=== PATIENT | male | born 1960 | race Caucasian/White ===

== ENCOUNTER 2024-01-17 10:15 | Observation (INO) ==
[2024-01-17 13:34] LABS: Hematocrit (blood only) 45.8 % (42.0-52.0); Hemoglobin 15.5 g/dl (14.0-18.0); Mean Corpuscular Hemoglobin 30.5 pg (25.0-34.0); Mean Corpuscular Hgb Conc 33.8 g/dL (32.0-36.0); Mean Corpuscular Volume 90.2 fL (80.0-100.0); Platelet Count 320 K/uL (130-400); RDW Coefficient of Variation 13.6 % (11.5-14.5); RDW Standard Deviation 45.4 fL (36.4-46.3); Red Blood Count 5.08 M/uL (4.70-6.10); White Blood Count 22.49 K/ul (4.8-10.8)
[2024-01-17 13:39] LABS: Alanine Aminotransferase 25 U/L (7-52); Albumin Globulin Ratio 1.8 (0.9-2); Albumin Level 4.9 gm/dl (3.4-5.0); Alkaline Phosphatase 81 U/L (34-104); Anion Gap 6 (3-11); Aspartate Aminotransferase 23 U/L (13-39); BUN Creatinine Ratio 19.2 (10-20); Bilirubin,Total 0.6 mg/dl (0.2-1.0); Blood Urea Nitrogen 15 mg/dl (6-23); Calcium 10.2 mg/dl (8.6-10.3); Carbon Dioxide 27 mmol/L (21-32); Chloride 106 mmol/L (98-107); Est GFR (African American) 112.9 ml/min; Est GFR (Non-African American) 97.4 ml/min; Globulin 2.8 gm/dl (2.5-4.0); Glucose 141 mg/dl (70-99(Fasting)); Potassium 4.3 mmol/L (3.5-5.1); Sodium 139 mmol/L (136-145); Total Protein 7.7 gm/dl (6.0-8.3)
[2024-01-17 13:43] LABS: Troponin I High Sensitivity 5.9 pg/ml (0-20)
[2024-01-17 13:48] LABS: Partial Thromboplastin Time 28 Seconds (21-31); Prothrombin Time 10.6 Seconds (9.0-12.0)
--- NOTE | 2024-01-17 13:53 | Emergency Department Note ---
ED Provider Note History of Present Illness Chief Complaint: Dizziness Stated Complaint: SOB, DIZZY Time Seen by Provider: 01/17/24 13:52 This is a 63-year-old male with a history of smoking, who presents to the emergency department with lightheadedness, dizziness, and vomiting. He states that yesterday when he was working at [employer] up on a ladder he felt lightheaded and dizzy so he came down off the ladder. The symptoms for the most part resolved yesterday. Today around 9:00 in the morning he had acute onset of lightheadedness and dizziness and thought he may be having a heart attack. He was working at [employer] when this occurred and he sat down for about 30 minutes, did not feel any better so decided to call an ambulance. While waiting in the emergency department, the patient had 2 episodes of vomiting. He feels a little better now from a nausea standpoint, but still has some dizziness. The lightheadedness/dizziness is constant, not reproducible with any changes in position. He feels unsteady when he is walking. He does not have much of a headache now. Patient never had any chest pain or shortness of breath. Denies any abdominal pain. Has not had any fevers or chills. Has been trying to drink fluids and stay hydrated. No sore throat, congestion, or cough that is new. [place] and is working at [employer] right now doing [employer] work. He does not take any daily medications. Followed with primary care before [facility], but has not followed with primary care since [facility]. Does not take any daily medications. Home Medications Medication Instructions Recorded Confirmed Type aspirin 81 mg tablet 81 mg PO DAILY PRN Headache 01/17/24 01/17/24 History Allergies Allergy/AdvReac Type Severity Reaction Status Date / Time No Known Allergies Allergy Unverified 01/17/24 14:57 Past Med/Surg History Social History Smoking Status: Current every day smoker Tobacco Type: Cigarettes Hx Alcohol Use: Yes Hx Substance Use: No Preferred Language: Algerian Communication Ability: Effective Crime Prevention Worker Required: No Beliefs That Will Affect Care: None Current Living Situation: Spouse Feels Safe at Home: Yes Physical Exam Vital Signs Vital Signs - 24 hr 01/17/24 10:41 01/17/24 14:04 01/17/24 14:17 Temperature 97.9 F Temperature Source Temporal Artery Scan Pulse Rate 68 72 Pulse Rate [Apical] 63 Respiratory Rate 20 18 Respiratory Effort / Characteristics Non-Labored Non-Labored Spontaneous Respiratory Depth Normal Normal Blood Pressure 147/91 H Blood Pressure [Right Arm] 163/93 H Blood Pressure Mean 109 Blood Pressure Mean [Right Arm] 116 Blood Pressure Position [Right Arm] Sitting Pulse Oximetry 98 98 Oxygen Delivery Method Room Air Room Air Sepsis Recent Fever Within 48 Hours No Sepsis New/Unexplained Change in Mental Status No Sepsis Action Taken by Nursing No Action Required 01/17/24 15:46 01/17/24 15:47 Temperature Temperature Source Pulse Rate 78 Pulse Rate [Apical] Respiratory Rate 18 Respiratory Effort / Characteristics Respiratory Depth Blood Pressure Blood Pressure [Right Arm] Blood Pressure Mean Blood Pressure Mean [Right Arm] Blood Pressure Position [Right Arm] Pulse Oximetry 95 94 Oxygen Delivery Method Room Air Room Air Sepsis Recent Fever Within 48 Hours Sepsis New/Unexplained Change in Mental Status Sepsis Action Taken by Nursing CONSTITUTIONAL: Well developed, well nourished, in no acute distress. HEAD: Normocephalic, atraumatic. EYES: PERRL, conjunctivae normal, extraocular muscles intact. No nystagmus ENMT: External ears normal. Nose with normal external appearance, no congestion. Oral mucous membranes slightly dry. Oropharynx otherwise normal. NECK: Full active range of motion. RESPIRATORY: Breathing unlabored and symmetric. Diffuse inspiratory and expiratory wheezes. Patient in no distress. No rales. CARDIOVASCULAR: Regular rate and rhythm. No murmurs, rubs, or gallops. ABDOMEN: Normal bowel sounds. Soft, nontender, no peritonitis. No masses. No CVA tenderness bilaterally. MUSCULOSKELETAL: Moves all extremities at all joints without pain or difficulty. No cyanosis or edema. SKIN: Slightly pale, warm, dry. NEUROLOGIC: Awake, alert, oriented x 3. Cranial nerves II through XII intact. No pronator drift. Coordination intact in bilateral upper and lower extremities. Unable to reproduce the patient's symptoms by rolling him to the right or left. Gait is unstable. Patient reaches out with his left arm when closing his eyes. He is able to ambulate. PSYCHIATRIC: Appropriate. Normal affect Course Administered Medications Ampicillin Sodium/Sulbactam Sodium 3,000 mg/ Sodium Chloride 100 mls @ 100 mls/hr IV Q6H IMAN Stop: 01/27/24 16:59 Last Admin: 01/17/24 18:24 Dose: 100 mls/hr Documented By: CC Ondansetron HCl (Ondansetron Inj 2 Mg/Ml 2 Ml Vial) 4 mg IV NOW PRN PRN Reason: nausea vomiting Stop: 02/16/24 14:15 Last Admin: 01/17/24 14:31 Dose: 4 mg Documented By: CC Discontinued Medications Aspirin (Aspirin 81 Mg Chew) 324 mg PO NOW ONE Stop: 01/17/24 16:30 Last Admin: 01/17/24 17:09 Dose: 324 mg Documented By: CC Atorvastatin Calcium (Atorvastatin 40 Mg Tab) 40 mg PO NOW STA Stop: 01/17/24 16:35 Last Admin: 01/17/24 17:08 Dose: 40 mg Documented By: CC Gadobutrol (Gadobutrol 65ml Vial) 7 ml IV ONCE ONE Stop: 01/17/24 18:06 Last Admin: 01/17/24 18:05 Dose: 7 ml Documented By: AF(2) Sodium Chloride (Nss) 1,000 mls @ 999 mls/hr IV .Q1H1M ONE Stop: 01/17/24 15:16 Last Infusion: 01/17/24 15:47 Dose: Infused Documented By: Admin: 01/17/24 14:31 Dose: 999 mls/hr Documented By: CC Ioversol (Optiray 320 125ml) 117 ml IV ONCE ONE Stop: 01/17/24 14:21 Last Admin: 01/17/24 14:16 Dose: 117 ml Documented By: BRM Medical Decision Making Differential Diagnosis CVA, intracranial hemorrhage, WA, arrhythmia, BPPV, labyrinthitis, Mnire's disease, dissection, sepsis, electrolyte imbalance, dehydration, orthostatic hypotension, among other pathology Laboratory Data 01/17/24 12:55 01/17/24 12:55 Lab Results 01/17/24 01/17/24 01/17/24 Range/Units 12:55 14:35 16:24 WBC 22.49 H (4.8-10.8) K/ul RBC 5.08 (4.70-6.10) M/uL Hgb 15.5 (14.0-18.0) g/dl Hct 45.8 (42.0-52.0) % MCV 90.2 (80.0-100.0) fL MCH 30.5 (25.0-34.0) pg MCHC 33.8 (32.0-36.0) g/dL RDW Std Deviation 45.4 (36.4-46.3) fL RDW Coeff of Henrry 13.6 (11.5-14.5) % Plt Count 320 (130-400) K/uL MPV 9.0 L (9.4-12.4) fL Immature Gran % (Auto) 0.8 % Neut % (Auto) 90.9 % Lymph % (Auto) 5.6 % Archuleta % (Auto) 2.3 % Eos % (Auto) 0.0 % Baso % (Auto) 0.4 % Neut # (Auto) 20.44 H (1.40-6.50) K/uL Lymph # (Auto) 1.27 (1.20-3.40) K/uL Archuleta # (Auto) 0.51 (0.11-0.59) K/uL Eos # (Auto) 0.00 (0.00-0.50) K/uL Baso # (Auto) 0.10 (0.00-0.20) K/uL Immature Gran # (Auto) 0.17 (0.01-0.20) K/uL PT 10.6 (9.0-12.0) Seconds INR 1.0 (0.9-1.1) APTT 28 (21-31) Seconds PTT Ratio 1.0 D-Dimer 550 H* (0-500) ug/L FEU Sodium 139 (136-145) mmol/L Potassium 4.3 (3.5-5.1) mmol/L Chloride 106 (98-107) mmol/L Carbon Dioxide 27 (21-32) mmol/L Anion Gap 6 (3-11) BUN 15 (6-23) mg/dl Creatinine 0.78 (0.6-1.4) mg/dl Est Cr Clr Drug Dosing Not Reportable Est GFR ( Amer) 112.9 ml/min Est GFR (Non-Af Amer) 97.4 ml/min BUN/Creatinine Ratio 19.2 (10-20) Glucose 141 H (70-99(Fasting)) mg/dl Calcium 10.2 (8.6-10.3) mg/dl Total Bilirubin 0.6 (0.2-1.0) mg/dl AST 23 (13-39) U/L ALT 25 (7-52) U/L Alkaline Phosphatase 81 (34-104) U/L Troponin I High Sens 5.9 5.8 (0-20) pg/ml Total Protein 7.7 (6.0-8.3) gm/dl Albumin 4.9 (3.4-5.0) gm/dl Globulin 2.8 (2.5-4.0) gm/dl Albumin/Globulin Ratio 1.8 (0.9-2) Adenovirus (PCR) Not Detected (NotDetected) B. pertussis DNA (PCR) Not Detected (NotDetected) B.parapertussis DNA PCR Not Detected (NotDetected) C. pneumoniae DNA (PCR) Not Detected (NotDetected) Coronavirus OC43 (PCR) Not Detected (NotDetected) Coronavirus HKU1 (PCR) Not Detected (NotDetected) Coronavirus 229E (PCR) Not Detected (NotDetected) SARS-CoV-2 (PCR) Not Detected (NotDetected) Coronavirus NL63 (PCR) Not Detected (NotDetected) Human Metapneumovir PCR Not Detected (NotDetected) Influenza Type A (PCR) Not Detected (NotDetected) Influenza Type B (PCR) Not Detected (NotDetected) M. pneumoniae (PCR) Not Detected (NotDetected) Parainfluenza 1 (PCR) Not Detected (NotDetected) Parainfluenza 2 (PCR) Not Detected (NotDetected) Parainfluenza 3 (PCR) Not Detected (NotDetected) Parainfluenza 4 (PCR) Not Detected (NotDetected) RSV (PCR) Not Detected (NotDetected) Entero/Rhino (PCR) Not Detected (NotDetected) Imaging Data Radiologist's Impression: Head CTA 01/17/24 14:09 CT ANGIOGRAM OF THE BRAIN COMBO CLINICAL HISTORY: Dizziness. Gait abnormality. Vomiting. COMPARISON STUDY: No priors. TECHNIQUE: Unenhanced axial CT scan of the brain is performed. Subsequently, following the IV administration of 117 cc of Optiray 320, CT angiogram of the brain was performed from the skull base to the vertex. Images are reviewed in the axial, sagittal, and coronal planes. 3-D MIPS images are created and assessed. IV contrast was administered without complication. A dose lowering technique was utilized adhering to the principles of ALARA. FINDINGS: Brain parenchyma: The brain parenchyma is normal in appearance. There is no hemorrhage, mass effect, or evidence of acute territorial ischemia by CT criteria. There is no evidence of enhancing mass lesion on the angiogram phase images. No extra-axial fluid collection is seen. [place]-white matter differentiation is preserved. Ventricles, sulci, and cisterns: Normal in configuration. CT angiogram of the brain: There is moderate atherosclerotic calcification of the cavernous carotid arteries. The internal carotid arteries are widely patent, as are the anterior and middle cerebral arteries. The vertebrobasilar system and posterior cerebral arteries are widely patent. The left vertebral artery is dominant. There is no aneurysm, high-grade stenosis, or focal vessel cutoff identified throughout the intracranial circulation. Dural sinuses: Clear as visualized. Orbits: The bony orbits are intact. The orbital contents are normal as visualized. Sinuses and mastoids: There is subtotal opacification of the right frontal sinus. There are opacified anterior ethmoid sinuses, right greater than left. Jsyq-nc-vjzhputu mucosal thickening is also seen in the maxillary antra. The mastoid air cells are well pneumatized. Calvarium: Unremarkable. IMPRESSION: 1. There is no hemorrhage, mass effect, or evidence of acute territorial ischemia by CT criteria. 2. Unremarkable CT angiogram of the brain. 3. Paranasal sinus disease as above. ACT 112: Negative or not required by law. Electronically signed by: Tulio Yanez M.D. 01/17/2024 2:37 PM Neck CTA 01/17/24 14:09 CT angio neck with con CLINICAL HISTORY: dizziness, unsteadiness of gait, vomiting TECHNIQUE: CT angiography of the neck was performed following intravenous administration of iodinated contrast. Coronal and sagittal MIPS were obtained from the axial data set and were submitted for review. Automated dose lowering techniques and/or adjustment according to patient size were utilized for this examination. All measurements were calculated based on NASCET criteria. CT DOSE: 970.94 mGy.cm Comparison: None available at the time of this dictation. FINDINGS: Lungs and soft tissues are unremarkable. CTA Neck: A 3 vessel aortic arch is shown. There is no significant atherosclerotic plaque in the aortic arch or the origins of the innominate, left common carotid, and left subclavian arteries. The common carotid, external carotid, cervical segments of the internal carotid arteries, and the cervical segments of the vertebral arteries are patent without hemodynamically significant stenosis. The left vertebral artery is dominant. IMPRESSION: No occlusion, hemodynamically significant stenosis, or dissection in the major cervical arteries. Assessment of stenosis of the internal carotid arteries is based on NASCET criteria. ACT 112: Negative or not required by law. Electronically signed by: Shivam Newberry M.D. 01/17/2024 2:36 PM Brain MRI 01/17/24 16:24 MR brain wo/w con HISTORY: 63 years-old Male ? CVA acute dizziness with stroke like symptoms COMPARISON: Head CT of same day TECHNIQUE: Multiplanar multisequence MRI of the brain was obtained with and without the use of IV contrast. FINDINGS: No restricted diffusion to suggest acute or subacute infarct. Midline structures are unremarkable. No pathologic timing artifact. Involutional changes with minimal T2/FLAIR hyperintense foci within the white matter suggestive of probable chronic microvascular ischemic disease. Cerebral venous sinuses and major arterial flow voids appear patent. Skull, orbits and soft tissues are unremarkable. Moderate mucosal thickening of the paranasal sinuses. No abnormal enhancement. IMPRESSION: 1. No acute intracranial abnormality. No acute or subacute infarct. 2. Moderate mucosal thickening of the paranasal sinuses. 3. No abnormal enhancement. ACT 112: Negative or not required by law. The above report was generated using voice recognition software. It may contain grammatical, syntax or spelling errors. Electronically signed by: Trenton Garcia M.D. 01/17/2024 7:08 PM ECG Data Attestation: I personally reviewed and interpreted this ECG as follows: (Sinus bradycardia, first-degree AV block. Full 210. No acute ST elevation.) MDM Narrative This is a 63-year-old male who presents to the emergency department with some intermittent lightheadedness and dizziness that started yesterday. Today he had much worsening of symptoms that have been constant with dizziness and lightheadedness. He had 2 episodes of vomiting while in the waiting room of this emergency department. See above for further details. Patient resting comfortably on the stretcher. He appears slightly pale. Slightly hypertensive, remainder of vitals are normal. Full neurologic exam was performed. He is unsteady on his feet as described above. He is able to ambulate. Remainder of neuroexam is reassuring. An IV was inserted and labs were obtained. Patient was given IV fluids and Zofran. This did improve his nausea. EKG: Borderline first-degree AV block, no other acute abnormalities Labs: Prominent leukocytosis at 22, possibly secondary to vomiting the patient only had 2 episodes. Coags normal. No electrolyte disturbance. No transaminitis. Troponin normal. Repeat troponin also normal. Case reviewed with ED attending Dr. Hernandez. CTA of the head and neck was obtained demonstrating no CVA. Does have some signs thickening/opacification. Due to persistent gait abnormality with leukocytosis of 22, inpatient evaluation was recommended to rule out posterior CVA. Patient considered going home versus staying here and eventually was agreeable with admission. Case discussed with Dr. Mancini ([facility] hospitalist) who agrees to admit the patient. Impression Gait instability, Nausea & vomiting, Leukocytosis Discharge Plan Visit Data Chief Complaint: Dizziness Stated Complaint: SOB, DIZZY ED Provider: Moi Hernandez ED Midlevel Provider: Juliocesar Gonsalez Discharge Problem: Gait instability, Nausea & vomiting, Leukocytosis Patient Disposition: Admitted As Inpatient Condition: Fair Discharge Instructions Interventions: ED Discharge Assessment Last Done: 01/17/24 16:57 Discharge Problem: Nausea & vomiting Qualifiers: Vomiting type: unspecified Qualified Code(s): R11.2 - Nausea with vomiting, unspecified Leukocytosis Qualifiers: Leukocytosis type: unspecified Qualified Code(s): D72.829 - Elevated white blood cell count, unspecified
[2024-01-17 13:55] LABS: Basophils % (auto) 0.4 %; Immature Granulocytes # (auto) 0.17 K/uL (0.01-0.20); Immature Granulocytes % (auto) 0.8 %; Lymphocytes # (auto) 1.27 K/uL (1.20-3.40); Lymphocytes % (auto) 5.6 %; Monocytes # (auto) 0.51 K/uL (0.11-0.59); Monocytes % (auto) 2.3 %; Neutrophils # (auto) 20.44 K/uL (1.40-6.50); Neutrophils % (auto) 90.9 %
[2024-01-17] MEDS: OPTIRAY 320 125ml IV ONE (14:16)
[2024-01-17] MEDS: SODIUM CHLORIDE 0.9% 1,000 ML IV ONE (14:31)
[2024-01-17] MEDS: ONDANSETRON INJ 2 MG/ML 2 ML VIAL IV PRN (14:31)
--- NOTE | 2024-01-17 14:37 | CT Scan Report ---
CT angio neck with con CLINICAL HISTORY: dizziness, unsteadiness of gait, vomiting TECHNIQUE: CT angiography of the neck was performed following intravenous administration of iodinated contrast. Coronal and sagittal MIPS were obtained from the axial data set and were submitted for rev iew. Automated dose lowering techniques and/or adjustment according to patient size were utilized fo r this examination. All measurements were calculated based on NASCET criteria. CT DOSE: 970.94 mGy.cm Comparison: None available at the time of this dictation. FINDINGS: Lungs and soft tissues are unremarkable. CTA Neck: A 3 vessel aortic arch is shown. There is no significant atherosclerotic plaque in the aor tic arch or the origins of the innominate, left common carotid, and left subclavian arteries. The co mmon carotid, external carotid, cervical segments of the internal carotid arteries, and the cervical segments of the vertebral arteries are patent without hemodynamically significant stenosis. The left vertebral artery is dominant. IMPRESSION: No occlusion, hemodynamically significant stenosis, or dissection in the major cervical arteries. Assessment of stenosis of the internal carotid arteries is based on NASCET criteria. ACT 112: Negative or not required by law. Electronically signed by: Shivam Newberry M.D. 01/17/2024 2:36 PM
--- NOTE | 2024-01-17 14:38 | CT Scan Report ---
CT ANGIOGRAM OF THE BRAIN COMBO CLINICAL HISTORY: Dizziness. Gait abnormality. Vomiting. COMPARISON STUDY: No priors. TECHNIQUE: Unenhanced axial CT scan of the brain is performed. Subsequently, following the IV adminis tration of 117 cc of Optiray 320, CT angiogram of the brain was performed from the skull base to the vertex. Images are reviewed in the axial, sagittal, and coronal planes. 3-D MIPS images are created a nd assessed. IV contrast was administered without complication. A dose lowering technique was utiliz ed adhering to the principles of ALARA. FINDINGS: Brain parenchyma: The brain parenchyma is normal in appearance. There is no hemorrhage, mass effect, or evidence of acute territorial ischemia by CT criteria. There is no evidence of enhancing mass lesi on on the angiogram phase images. No extra-axial fluid collection is seen. [place]-white matter differen tiation is preserved. Ventricles, sulci, and cisterns: Normal in configuration. CT angiogram of the brain: There is moderate atherosclerotic calcification of the cavernous carotid a rteries. The internal carotid arteries are widely patent, as are the anterior and middle cerebral art eries. The vertebrobasilar system and posterior cerebral arteries are widely patent. The left vertebr al artery is dominant. There is no aneurysm, high-grade stenosis, or focal vessel cutoff identified t hroughout the intracranial circulation. Dural sinuses: Clear as visualized. Orbits: The bony orbits are intact. The orbital contents are normal as visualized. Sinuses and mastoids: There is subtotal opacification of the right frontal sinus. There are opacified anterior ethmoid sinuses, right greater than left. Yirj-[id number]-kvbdlpyd mucosal thickening is also seen in the maxillary antra. The mastoid air cells are well pneumatized. Calvarium: Unremarkable. IMPRESSION: 1. There is no hemorrhage, mass effect, or evidence of acute territorial ischemia by CT criteria. 2. Unremarkable CT angiogram of the brain. 3. Paranasal sinus disease as above. ACT 112: Negative or not required by law. Electronically signed by: Tulio Yanez M.D. 01/17/2024 2:37 PM
--- NOTE | 2024-01-17 16:07 | Electrocardiogram Report ---
Test Reason : Blood Pressure : / mmHG Vent. Rate : 055 BPM Atrial Rate : 055 BPM P-R Int : 210 ms QRS Dur : 088 ms QT Int : 468 ms P-R-T Axes : 023 043 043 degrees QTc Int : 447 ms Sinus bradycardia with 1st degree A-V block Left atrial enlargement Left ventricular hypertrophy ( Sokolow-Hall , [place] product ) Abnormal ECG No previous ECGs available Confirmed by Rios Escobar ([id number]) on 01/17/2024 4:07:30 PM Referred By: Confirmed By:Rios Escobar
[2024-01-17] MEDS ORDERED: PHARMACIST DISCHARGE MED REC CONSULT PRN (16:24)
--- NOTE | 2024-01-17 16:44 | History & Physical Report ---
Date of Service January 17, 2024 Assessment & Plan (1) Acute sinusitis: Plan: Assessment: 1. Acute maxillary and ethmoid sinusitis. IV Unasyn. Blood cultures. 2. Unsteady gait associated with lightheadedness nausea vomiting. Question etiology. Acute sinusitis versus TIA/CVA. Stroke protocol has been ordered. MRI of the brain has been ordered. Echocardiogram ordered. 324 of aspirin ordered stat. 3. History of hypertension currently untreated per the patient's self-care at home. 4. Tobacco abuse in the form of smoking cigarettes 1 pack/day. 5. Leukocytosis reactive versus infectious. Recheck in AM. Plan: As described above. Please refer to orders for further planning. History of Present Illness Chief Complaint: Near syncope, nausea vomiting, sinus pressure. Primary Care Provider: NO PCP This is a pleasant 63-year-old male who was working from out of town, he is from [facility], he is working at [employer] currently. Yesterday he had an episode after climbing a ladder where he felt lightheaded he came back down off the ladder and his symptoms resolved spontaneously. Today at work he had recurrent episodes of lightheadedness associated with nausea he came to the ER to be evaluated and had multiple episodes of emesis while in the waiting room. In the ER he had a negative troponin x 2 he had a reassuring EKG. He did have a white count of 22.49. His CBC and CMP were otherwise unremarkable. Patient underwent CTA of the head and neck which was significant for the following: He had subtotal opacification of the right frontal sinus and opacified anterior ethmoid sinuses right greater than left. With mild to moderate mucosal thickening also seen in the maxillary antra. There was no acute intracranial abnormalities. Course in the emergency department he received a liter of normal saline as well as a dose of IV Zofran. We are called admit the patient for further evaluation and treatment for concern of cerebellar stroke. We have ordered stat blood cultures we have ordered a respiratory bio fire viral panel. We have ordered IV Unasyn for his sinusitis. And we have ordered stat 324 of aspirin and and stat MRI of the brain. My clinical suspicion of stroke is fairly low at this time I do suspect this is more of an infectious etiology of his symptomatology. Past medical history: Hypertension currently untreated he discontinued his own blood pressure medication over a year ago. Basal cell skin carcinoma of the head face and back region. Past surgical history: mastectomy resulting in a testicular infection which resulted in a unilateral orchiectomy, herniorrhaphy. Social history: The patient is a pack-a-day smoker he drinks about a sixpack to 2 sixpacks per week and typically does not drink during the week. He denies use of illicit street drugs. He is a equipment operator/laborer. He is lives with his who accompanies him at the bedside at the time of my evaluation. Family medical history: Obtained and noncontributory to present illness. Allergies Allergy/AdvReac Type Severity Reaction Status Date / Time No Known Allergies Allergy Unverified 01/17/24 14:57 Home Medications Medication Instructions Recorded Confirmed Type aspirin 81 mg tablet 81 mg PO DAILY PRN Headache 01/17/24 01/17/24 History Past Med/Surg History Social History Smoking Status: Current every day smoker Tobacco Type: Cigarettes Feels Safe at Home: Yes Review of Systems Review of Systems: A 10 point review of system was obtained and unless otherwise stated here or in history of present illness are negative and noncontributory to chief complaint. Physical Exam Physical Exam: In General: In general this is a pleasant 63-year-old male who is alert and oriented x 3 at the time of my exam he is accompanied by his at the time of my examination. His nausea has resolved. His lightheadedness is resolved. Per the patient he was unsteady on his feet when he ambulated a few hours ago in the ER but now the symptoms have resolved as well. HEENT: Normocephalic atraumatic pupils are equal round and reactive to light bilaterally. No scleral icterus no conjunctival injection external auditory canals are patent septum is in the midline nose is without discharge oral mucosa is pink and moist without lesion. He does have discomfort to palpation over both the ethmoid and maxillary sinus regions. NECK: Supple no rigidity no lymphadenopathy no thyromegaly no carotid bruits no JVD no masses. HEART: Regular rate and rhythm I do not appreciate any ectopy or rub. No murmur. LUNGS: Clear to auscultation bilaterally and anteriorly with no evidence of adventitious sounds/wheezes rales or rhonchi. ABDOMEN: Soft nontender, no rebound, no peritoneal signs, positive bowel sounds, no appreciable organomegaly. EXTREMITIES: Intact, no peripheral cyanosis, clubbing or edema. Strength is 5 out of 5 in extremities x4, no pathological reflexes. NEUROLOGICAL: Cranial nerves II through XII are grossly intact with no focal deficit elicited upon examination. No tremor. No loss in sensation to fine pinprick. No cerebellar sign. Results & Data Results & Data Vital Signs (Past 12 Hours) Vital Signs Temp Pulse Pulse Resp BP BP Pulse Ox 01/17/24 15:47 94 01/17/24 15:46 78 18 95 01/17/24 14:17 63 18 163/93 H 98 01/17/24 14:04 72 01/17/24 10:41 36.6 C 68 20 147/91 H 98 O2 Del Method 01/17/24 15:47 Room Air 01/17/24 15:46 Room Air 01/17/24 14:17 Room Air 01/17/24 14:04 01/17/24 10:41 Room Air Code Status & VTE Plan Code Status Full code-I personally discussed with the patient at bedside VTE Prophylaxis Plan VTE Prophylaxis will be ordered: Yes PG Care Time/CCT Total # of Minutes Spent Total Time Spent with Patient: Total time spent is greater than 50% in coordination of care (as documented) at patient's floor/unit and/or counseling patient: Coding Level of Care Code 33042 INT INP/OBS CARE 375MIN Diagnoses Acute sinusitis J01.90
[2024-01-17 16:46] LABS: D Dimer 550 ug/L FEU (0-500)
[2024-01-17 16:49] LABS: Appearance Urine Clear (Clear); Bacteria Urine Automated Negative (Negative); Bilirubin Urine Negative (Negative); Blood Urine Negative (Negative); Color Urine Yellow; Epithelial Cell Urine Auto >30 /lpf (0-5); Glucose Urine UA Negative (Negative); Ketones Urine 1+ (Negative); Leukocyte Esterase Urine Negative (Negative); Nitrite Urine Negative (Negative); Protein Urine Trace (Negative); RBC Urine Automated 0-4 /hpf (0-4); Specific Gravity Urine > 1.045 (1.000-1.030); Urobilinogen Urine Negative (Negative)
[2024-01-17] MEDS: ATORVASTATIN 40 MG TAB PO STA (17:08)
[2024-01-17] MEDS: ASPIRIN 81 MG CHEW PO ONE (17:09)
[2024-01-17 17:23] LABS: Adenovirus PCR Not Detected (NotDetected); Bordetella parapertussis PCR Not Detected (NotDetected); Bordetella pertussis PCR Not Detected (NotDetected); Chlamydia pneumoniae PCR Not Detected (NotDetected); Coronavirus 229E PCR Not Detected (NotDetected); Coronavirus CoV-2 (COVID19)PCR Not Detected (NotDetected); Coronavirus HKU1 PCR Not Detected (NotDetected); Coronavirus NL63 PCR Not Detected (NotDetected); Coronavirus OC43PCR Not Detected (NotDetected); Human Metapneumovirus PCR Not Detected (NotDetected); Influenza A PCR Not Detected (NotDetected); Influenza B PCR Not Detected (NotDetected); Mycoplasma pneumoniae PCR Not Detected (NotDetected); Parainfluenza Virus 1 PCR Not Detected (NotDetected); Parainfluenza Virus 2 PCR Not Detected (NotDetected); Parainfluenza Virus 3 PCR Not Detected (NotDetected); Parainfluenza Virus 4 PCR Not Detected (NotDetected); Respiratory Syncytial VirusPCR Not Detected (NotDetected); Rhinovirus/Enterovirus PCR Not Detected (NotDetected)
[2024-01-17] MEDS: GADOBUTROL 65ML VIAL IV ONE (18:05)
[2024-01-17] MEDS: AMPICILLIN/SULBACTAM SOD 3,000 MG in SODIUM CHLOR 0.9% MINI-B 100 ML IV SCH (18:24)
--- NOTE | 2024-01-17 19:10 | Magnetic Resonance Report ---
MR brain wo/w con HISTORY: 63 years-old Male ? CVA acute dizziness with stroke like symptoms COMPARISON: Head CT of same day TECHNIQUE: Multiplanar multisequence MRI of the brain was obtained with and without the use of IV con trast. FINDINGS: No restricted diffusion to suggest acute or subacute infarct. Midline structures are unremarkable. No pathologic timing artifact. Involutional changes with minimal T2/FLAIR hyperintense foci within the white matter suggestive of probable chronic microvascular ischemic disease. Cerebral venous sinuses and major arterial flow voids appear patent. Skull, orbits and soft tissues a re unremarkable. Moderate mucosal thickening of the paranasal sinuses. No abnormal enhancement. IMPRESSION: 1. No acute intracranial abnormality. No acute or subacute infarct. 2. Moderate mucosal thickening of the paranasal sinuses. 3. No abnormal enhancement. ACT 112: Negative or not required by law. The above report was generated using voice recognition software. It may contain grammatical, syntax o r spelling errors. Electronically signed by: Trenton Garcia M.D. 01/17/2024 7:08 PM
[2024-01-18] MEDS: ACETAMINOPHEN 325 MG TAB PO PRN (03:18)
[2024-01-18 06:48] LABS: Basophils # (auto) 0.06 K/uL (0.00-0.20); Basophils % (auto) 0.3 %; Eosinophils # (auto) 0.12 K/uL (0.00-0.50); Eosinophils % (auto) 0.6 %; Hematocrit (blood only) 41.7 % (42.0-52.0); Hemoglobin 14.3 g/dl (14.0-18.0); Immature Granulocytes # (auto) 0.07 K/uL (0.01-0.20); Immature Granulocytes % (auto) 0.3 %; Lymphocytes # (auto) 3.41 K/uL (1.20-3.40); Mean Corpuscular Hemoglobin 30.8 pg (25.0-34.0); Mean Corpuscular Hgb Conc 34.3 g/dL (32.0-36.0); Mean Corpuscular Volume 89.9 fL (80.0-100.0); Mean Platelet Volume 8.8 fL (9.4-12.4); Monocytes # (auto) 1.18 K/uL (0.11-0.59); Monocytes % (auto) 5.9 %; Neutrophils # (auto) 15.19 K/uL (1.40-6.50); Neutrophils % (auto) 75.9 %; Platelet Count 281 K/uL (130-400); RDW Coefficient of Variation 13.8 % (11.5-14.5); RDW Standard Deviation 45.1 fL (36.4-46.3); Red Blood Count 4.64 M/uL (4.70-6.10); White Blood Count 20.03 K/ul (4.8-10.8)
[2024-01-18 07:08] LABS: BUN Creatinine Ratio 12.5 (10-20); Calcium 9.2 mg/dl (8.6-10.3); Chol HDL Ratio 2.5 (0-5); Est GFR (African American) 111.7 ml/min; Est GFR (Non-African American) 96.4 ml/min; Potassium 4.3 mmol/L (3.5-5.1)
[2024-01-18 07:26] LABS: Estimated Average Glucose 120 mg/dl; Hemoglobin A1C 5.8 % (4.5-5.6)
[2024-01-18] MEDS: ASPIRIN 81 MG ECTAB PO SCH (08:38)
[2024-01-18] MEDS: ATORVASTATIN 40 MG TAB PO SCH (08:38)
--- NOTE | 2024-01-18 08:58 | Hospitalist Progress Note ---
Date of Service January 18, 2024 Assessment & Plan (1) Acute sinusitis: Plan: Assessment: 1. Acute maxillary and ethmoid sinusitis. IV Unasyn. Blood cultures. 2. Unsteady gait associated with lightheadedness nausea vomiting. Question etiology. Acute sinusitis versus TIA/CVA. Stroke protocol has been ordered. MRI of the brain has been ordered. Echocardiogram ordered. 324 of aspirin ordered stat. 3. History of hypertension currently untreated per the patient's self-care at home. 4. Tobacco abuse in the form of smoking cigarettes 1 pack/day. 5. Leukocytosis reactive versus infectious. Recheck in AM. Plan: As described above. Please refer to orders for further planning. Admission and Anticipated Discharge Date Admission Date: January 17, 2024 Results & Data Results & Data Vital Signs (Past 12 Hours) Vital Signs Temp Pulse Pulse Resp BP Pulse Ox O2 Del Method 01/18/24 07:00 97.3 F L 58 L 19 139/82 98 Room Air 01/18/24 03:29 Room Air 01/18/24 03:28 97.3 F L 69 18 133/79 95 Room Air 01/18/24 02:40 56 L 01/17/24 23:59 69 20 146/81 H 95 Room Air 01/17/24 23:06 59 L PG Care Time/CCT Total # of Minutes Spent Total Time Spent with Patient: Total time spent is greater than 50% in coordination of care (as documented) at patient's floor/unit and/or counseling patient: Coding Diagnoses Acute sinusitis J01.90
[2024-01-18] MEDS ORDERED: STROKE PATIENT DISCHARGE STA (11:36)
--- NOTE | 2024-01-18 12:29 | XCELERA ---
[id number] [id number]
--- NOTE | 2024-01-18 17:38 | Discharge Summary ---
Date of Service January 18, 2024 Admission HPI Per Admitting Provider This is a pleasant 63-year-old male who was working from out of town, he is from [facility], he is working at [employer] currently. Yesterday he had an episode after climbing a ladder where he felt lightheaded he came back down off the ladder and his symptoms resolved spontaneously. Today at work he had recurrent episodes of lightheadedness associated with nausea he came to the ER to be evaluated and had multiple episodes of emesis while in the waiting room. In the ER he had a negative troponin x 2 he had a reassuring EKG. He did have a white count of 22.49. His CBC and CMP were otherwise unremarkable. Patient underwent CTA of the head and neck which was significant for the following: He had subtotal opacification of the right frontal sinus and opacified anterior ethmoid sinuses right greater than left. With mild to moderate mucosal thickening also seen in the maxillary antra. There was no acute intracranial abnormalities. Course in the emergency department he received a liter of normal saline as well as a dose of IV Zofran. We are called admit the patient for further evaluation and treatment for concern of cerebellar stroke. We have ordered stat blood cultures we have ordered a respiratory bio fire viral panel. We have ordered IV Unasyn for his sinusitis. And we have ordered stat 324 of aspirin and and stat MRI of the brain. My clinical suspicion of stroke is fairly low at this time I do suspect this is more of an infectious etiology of his symptomatology. Past medical history: Hypertension currently untreated he discontinued his own blood pressure medication over a year ago. Basal cell skin carcinoma of the head face and back region. Past surgical history: mastectomy resulting in a testicular infection which resulted in a unilateral orchiectomy, herniorrhaphy. Social history: The patient is a pack-a-day smoker he drinks about a sixpack to 2 sixpacks per week and typically does not drink during the week. He denies use of illicit street drugs. He is a home performance laborer. He is lives with his who accompanies him at the bedside at the time of my evaluation. Family medical history: Obtained and noncontributory to present illness. Principal Diagnosis sinusitis, symptomatic Discharge Exam awake and alert, no new sx Discharge Data Allergies Allergy/AdvReac Type Severity Reaction Status Date / Time No Known Allergies Allergy Unverified 01/17/24 14:57 Consultations 01/17/24 16:05 ED Decision to Admit Stat Ordered Studies Head CTA 01/17/24 14:09 CT ANGIOGRAM OF THE BRAIN COMBO CLINICAL HISTORY: Dizziness. Gait abnormality. Vomiting. COMPARISON STUDY: No priors. TECHNIQUE: Unenhanced axial CT scan of the brain is performed. Subsequently, following the IV administration of 117 cc of Optiray 320, CT angiogram of the brain was performed from the skull base to the vertex. Images are reviewed in the axial, sagittal, and coronal planes. 3-D MIPS images are created and assessed. IV contrast was administered without complication. A dose lowering technique was utilized adhering to the principles of ALARA. FINDINGS: Brain parenchyma: The brain parenchyma is normal in appearance. There is no hemorrhage, mass effect, or evidence of acute territorial ischemia by CT criteria. There is no evidence of enhancing mass lesion on the angiogram phase images. No extra-axial fluid collection is seen. [place]-white matter differentiation is preserved. Ventricles, sulci, and cisterns: Normal in configuration. CT angiogram of the brain: There is moderate atherosclerotic calcification of the cavernous carotid arteries. The internal carotid arteries are widely patent, as are the anterior and middle cerebral arteries. The vertebrobasilar system and posterior cerebral arteries are widely patent. The left vertebral artery is dominant. There is no aneurysm, high-grade stenosis, or focal vessel cutoff sulema ntified throughout the intracranial circulation. Dural sinuses: Clear as visualized. Orbits: The bony orbits are intact. The orbital contents are normal as visualized. Sinuses and mastoids: There is subtotal opacification of the right frontal sinus. There are opacified anterior ethmoid sinuses, right greater than left. Uyan-by-kmcsivud mucosal thickening is also seen in the maxillary antra. The mastoid air cells are well pneumatized. Calvarium: Unremarkable. IMPRESSION: 1. There is no hemorrhage, mass effect, or evidence of acute territorial ischemia by CT criteria. 2. Unremarkable CT angiogram of the brain. 3. Paranasal sinus disease as above. ACT 112: Negative or not required by law. Electronically signed by: Tulio Yanez M.D. 01/17/2024 2:37 PM Neck CTA 01/17/24 14:09 CT angio neck with con CLINICAL HISTORY: dizziness, unsteadiness of gait, vomiting TECHNIQUE: CT angiography of the neck was performed following intravenous administration of iodinated contrast. Coronal and sagittal MIPS were obtained from the axial data set and were submitted for review. Automated dose lowering techniques and/or adjustment according to patient size were utilized for this examination. All measurements were calculated based on NASCET criteria. CT DOSE: 970.94 mGy.cm Comparison: None available at the time of this dictation. FINDINGS: Lungs and soft tissues are unremarkable. CTA Neck: A 3 vessel aortic arch is shown. There is no significant atherosclerotic plaque in the aortic arch or the origins of the innominate, left common carotid, and left subclavian arteries. The common carotid, external carotid, cervical segments of the internal carotid arteries, and the cervical segments of the vertebral arteries are patent without hemodynamically significant stenosis. The left vertebral artery is dominant. IMPRESSION: No occlusion, hemodynamically significant stenosis, or dissection in the major cervical arteries. Assessment of stenosis of the internal carotid arteries is based on NASCET criteria. ACT 112: Negative or not required by law. Electronically signed by: Shivam Newberry M.D. 01/17/2024 2:36 PM Brain MRI 01/17/24 16:24 MR brain wo/w con HISTORY: 63 years-old Male ? CVA acute dizziness with stroke like symptoms COMPARISON: Head CT of same day TECHNIQUE: Multiplanar multisequence MRI of the brain was obtained with and without the use of IV contrast. FINDINGS: No restricted diffusion to suggest acute or subacute infarct. Midline structures are unremarkable. No pathologic timing artifact. Involutional changes with minimal T2/FLAIR hyperintense foci within the white matter suggestive of probable chronic microvascular ischemic disease. Cerebral venous sinuses and major arterial flow voids appear patent. Skull, orbits and soft tissues are unremarkable. Moderate mucosal thickening of the paranasal sinuses. No abnormal enhancement. IMPRESSION: 1. No acute intracranial abnormality. No acute or subacute infarct. 2. Moderate mucosal thickening of the paranasal sinuses. 3. No abnormal enhancement. ACT 112: Negative or not required by law. The above report was generated using voice recognition software. It may contain grammatical, syntax or spelling errors. Electronically signed by: Trenton Garcia M.D. 01/17/2024 7:08 PM Hospital Course (1) Acute sinusitis: Assessment: 1. Acute maxillary and ethmoid sinusitis. IV Unasyn. home on augmentin, Blood cultures negative at discharge . 2. Unsteady gait associated with lightheadedness nausea vomiting. MRI did not show stroke, ECHO normal no shunt 3. History of hypertension currently untreated per the patient's self-care at home. educated on lifestyle modification 4. Tobacco abuse in the form of smoking cigarettes 1 pack/day. councelled on smoking cessation Total Time Total Time Spent Total Time Spent (In Minutes): It required greater than 30 minutes to prepare this patient for discharge. Discharge Plan Discharge Items Patient Disposition: Home - Self-Care Reason For Visit: ?CVA Discharge Diagnosis: sinusitis headache Condition on Discharge: Fair Activity: Resume your previous activity Non-emergency contact: Primary Care Provider Call non-emergency contact if: your symptoms worsen Follow-up/Referrals: PCP,NO [Primary Care Provider] - Diet: Regular Addtl Attending Provider Instructions: please finish all your antibiotics, may use decongestant and or mucinex Pending Studies at Discharge: No Stand-Alone Forms: My [employer], Work/School Release, Smoking Cessation Medications and DC Order Prescriptions: New amoxicillin-pot clavulanate 875-125 mg tablet 1 tab PO BID Qty: 20 0RF Continued aspirin 81 mg Tablet 81 mg PO DAILY PRN (Reason: Headache) Discharge Orders: Discharge Order (Routine); Ordered 01/18/24 Ordered By: Hunter Valle/Other Patient Handouts: DASH Plan Eat Heart Healthy Food Admission Data Admit Date/Time: 01/17/24 16:30 Attending Provider: Hunter Douglas Admit Provider: Kal Mancini Primary Care Provider: PCP,NO Other Providers: Kal Mancini Other Interventions: Discharge Summary Assessment (RN) Last Done: 01/18/24 13:01 Coding Level of Care Code 88765 INP/OBS DISCH >30 MIN Diagnoses Acute sinusitis J01.90
== END 2024-01-18 13:48 | disposition home or self-care (01) ==
LOC: ED 10:15 → EDINP 10:15 → SUATTDRO 16:30 → EDINP 16:57 → 2S 01-18 03:06